=== PATIENT | female | born 1950 | race Caucasian/White ===

== ENCOUNTER 2020-07-18 15:03 | Emergency (ER) | payer MEDICARE ==
[~2020-07-18] VITALS: Ht 170.2 cm; Wt 63.5 kg
--- NOTE | 2020-07-18 15:06 | NUR ---
[id number]. FELT WEAK AND DIZZY WHILE WALKING TO BATHROOM. NO LOC, TO ER BED 11, HOOKED TO MONITOR, VSS. CHANGED TO HOSP GOWN, WARM BLANKET PROVIDED, PATIENT AAO x 4. BREATHING EVEN AND UNLABORED, AWAITING MD ALBA
--- NOTE | 2020-07-18 15:08 | NUR ---
DR HENNESSY AT BEDSIDE
[2020-07-18] MEDS ORDERED: ONDANSETRON HCL/PF 4 MG/2 ML VIAL ONE (15:20)
[2020-07-18] MEDS ORDERED: IV NS 0.9% 1,000 ML BAG IV ONE (15:30)
[2020-07-18] MEDS ORDERED: ONDANSETRON HCL/PF 4 MG/2 ML VIAL IVP ONE (15:30)
[2020-07-18 15:32] LABS: BASOPHILS # (AUTO) 0.1 /CMM (0.0-0.2); BASOPHILS % (AUTO) 0.8 % (0.0-2.0); HEMATOCRIT 42 % (33-45); HEMOGLOBIN 13.9 g/dL (11.5-14.8); LYMPHOCYTES # (AUTO) 1.5 /CMM (0.8-4.8); LYMPHOCYTES % (AUTO) 20.8 % (20.0-44.0); MEAN CORPUSCULAR HGB CONC 33 g/dl (31.0-36.0); MEAN CORPUSCULAR VOLUME 90 fL (82-100); MONOCYTES # (AUTO) 0.4 /CMM (0.1-1.30); MONOCYTES % (AUTO) 5.1 % (2.0-12.0); NEUTROPHILS # (AUTO) 5.4 /CMM (1.8-8.9); NEUTROPHILS % (AUTO) 72.3 % (43.0-81.0); PLATELET COUNT (AUTO) 258 /CMM (150-450); RED BLOOD CELL COUNT(AUTO) 4.66 MIL/uL (4.0-5.2); WHITE BLOOD COUNT (AUTO) 7.4 K/uL (4.3-11.0)
[2020-07-18 15:54] LABS: CALCIUM, SERUM 9.4 mg/dL (8.5-10.1); CARBON DIOXIDE 27 mmol/L (21-32); CHLORIDE 106 mmol/L (98-107); GLUCOSE 165 mg/dL (74-106); POTASSIUM 3.9 mmol/L (3.5-5.1); SODIUM SERUM 144 mmol/L (136-145); UREA NITROGEN, BLOOD 20 mg/dL (7-18)
[2020-07-18] MEDS ORDERED: PARO10TA4 PO (15:54)
[2020-07-18] MEDS ORDERED: LEVO50TA8 PO (15:54)
[2020-07-18 16:00] LABS: ALANINE AMINOTRANSFERASE 22 U/L (12-78); ALBUMIN 3.3 g/dL (3.4-5.0); ALKALINE PHOSPHATASE 95 U/L (46-116); ASPARTATE AMINOTRANSFERASE 21 U/L (15-37); BILIRUBIN,TOTAL 0.2 mg/dL (0.2-1.0)
--- NOTE | 2020-07-18 16:01 | NUR ---
patient in bed awake, hooked to monitor, vss. will continue to monitor accordingly
--- NOTE | 2020-07-18 17:00 | NUR ---
PATIENT CONTACTING FRIEND FOR A TRANSPORTATION GOING HOME.
--- NOTE | 2020-07-18 18:03 | NUR ---
[facility]SP[facility] ETA: 1100 TRIP ID: [id number] Addendum: 07/18/20 at 1904 by DEBI [facility] ETA: 2300 TRIP ID: [id number]
--- NOTE | 2020-07-18 19:06 | NUR ---
REPORT GIVEN TO MARIAM KING FOR RAGHAVENDRA
[2020-07-18] MEDS ORDERED: ACETAMINOPHEN ES 500 MG TABLET ONE (19:56)
[2020-07-18] MEDS ORDERED: ACETAMINOPHEN ES 500 MG TABLET PO ONE (20:00)
--- NOTE | 2020-07-18 22:05 | NUR ---
PATIENT DENIES ANY C/O AT THIS MOMENT. DOES NOT HAVE ANYMORE HEADACHE.
--- NOTE | 2020-07-18 22:27 | NUR ---
IV removed. Catheter intact and site benign. Pressure and 4x4 applied to site. No bleeding noted.
--- NOTE | 2020-07-18 22:56 | NUR ---
REPORT GIVEN TO [facility] TEAM FOR RAGHAVENDRA.
[2020-07-18 22:57] VITALS: BP 129/72
== END 2020-07-18 23:01 | disposition home or self-care (01) ==
LOC: ER 15:12
DX: R55 Syncope and collapse (principal); G91.8 Other hydrocephalus; F32.9 Major depressive disorder, single episode, unspecified; E03.9 Hypothyroidism, unspecified; Z88.2 Allergy status to sulfonamides; Z79.899 Other long term (current) drug therapy
CPT/HCPCS: 36415; 70450; 71045; 80048; 80076; 84484; 85025; 93005; 96361; 96374; 99285; J2405; J7030

== ENCOUNTER 2025-03-15 14:57 | Emergency (ER) | payer BC, MEDICARE ==
[~2025-03-15] VITALS: Ht 170.2 cm; Wt 100.7 kg
[~2025-03-15 14:57] MED LIST: LEVO50TA8 PO; PARO10TA4 PO
[2025-03-15 15:07] VITALS: TEMP 98
[2025-03-15] MEDS ORDERED: CLIN300C12 PO (16:53)
[2025-03-15 18:29] VITALS: BP 132/71; O2SAT 95
== END 2025-03-15 18:24 | disposition home or self-care (01) ==
LOC: ER 15:00
DX: L02.01 Cutaneous abscess of face (principal); F32.A Depression, unspecified; E03.9 Hypothyroidism, unspecified; Z79.890 Hormone replacement therapy; Z79.899 Other long term (current) drug therapy; Z88.2 Allergy status to sulfonamides
CPT/HCPCS: 99284; 10060; A6407